=== PATIENT | female | born 1930 | race Caucasian/White ===

== ENCOUNTER → 2016-05-07 | Outpatient (CLI) | payer OTHER, BC ==
[~2016-05-07] VITALS: Ht 147.3 cm; Wt 53.1 kg
[~2016-05-07] MED LIST: ADVAIR 500/501 DISK IH; ALENDRONATE SOD70 MG PO; AMOXICILLIN500 MG PO; ASPIRIN81 M2 PO; AZITHROMYCIN500 M1 PO; BENZONATATE100 MG PO; CALCIUM 500 +1 EACH PO; CALCIUM CITRATE PO; CHOLECALCIFEROL PO; CIPROFLOXACIN500 M1 PO; CITRACAL + D M1 EACH PO; COZAAR50 MG PO; CRESTOR40 MG PO; DALIRESP500 MCG PO; DIGOXIN250 MCG PO; ECOTRIN325 MG PO; FOSAMAX70 MG PO; FUROSEMIDE20 MG PO; K-DUR10 MEQ PO; LASIX20 MG PO; LOPRESSOR25 MG PO; LOPRESSOR50 MG PO; LOSARTAN POTASS50 MG PO; METOPROLOL SUCC50 MG PO; METRONIDAZOLE500 MG PO; MINIPRESS2 MG PO; MONTELUKAST SOD10 MG PO; NITROSTAT0.4 MG SL; NORVASC2.5 MG PO; OMEPRAZOLE40 M1 PO; PACERONE200 MG PO; PLAVIX75 MG PO; PREDNISONE10 MG PO; PRESERVISION T1 EACH PO; PROTONIX40 MG PO; RANITIDINE HCL150 MG PO; RECLAST5 MG/100 M IV; REFRESH TEARS15 ML BOTH EYES; ROBITUSSIN AC,T10 ML PO; SINGULAIR10 MG PO; SPIRIVA1 INHALATI IH; VENTOLIN HFA18 GM IH; VITAMIN B12 PO; VITAMIN D32000 UNIT PO; XARELTO15 MG PO
== END | disposition home or self-care (01) ==
LOC: AMB 09:49
PROC: 0W3P8ZZ Control Bleeding in Gastrointestinal Tract, Via Natural or Artificial Opening Endoscopic (ICD-10-PCS; principal; 2016-05-07)
DX: Q27.33 Arteriovenous malformation of digestive system vessel (principal); T88.8XXA Other specified complications of surgical and medical care, not elsewhere classified, initial encounter; R00.1 Bradycardia, unspecified; R09.02 Hypoxemia; I10 Essential (primary) hypertension; J44.9 Chronic obstructive pulmonary disease, unspecified; I50.9 Heart failure, unspecified; K21.9 Gastro-esophageal reflux disease without esophagitis; J45.909 Unspecified asthma, uncomplicated; I48.91 Unspecified atrial fibrillation; R01.1 Cardiac murmur, unspecified; M19.90 Unspecified osteoarthritis, unspecified site
CPT/HCPCS: B4087; J0461